=== PATIENT | male | born 1945 | race Caucasian/White ===

== ENCOUNTER 2018-05-01 18:46 | Observation (INO) ==
[2018-05-01] MEDS ORDERED: Naloxone 0.4 MG/ML INJ IVP PRN (21:43)
[2018-05-01 22:08] LABS: Basophils % 0.3 %; Eosinophils # 0.2 K/mcL (0.0-0.6); Eosinophils % 2.5 %; Hematocrit 43.8 % (37.5-50.1); Hemoglobin 13.7 g/dL (12.9-16.9); Immature Granulocytes % 0.2 % (0-4); Lymphocytes # 1.4 K/mcL (0.6-4.6); Lymphocytes % 15.5 %; Mean Corpuscular HGB Conc 31.3 g/dL (31.6-35.5); Mean Corpuscular Hemoglobin 25.8 pg (28.0-33.3); Mean Corpuscular Volume 82.5 fL (83.0-100.0); Mean Platelet Volume 11.4 fL (9.4-12.4); Monocytes # 0.8 K/mcL (0.0-1.3); Monocytes % 8.6 %; Neutrophils # 6.5 K/mcL (1.6-8.9); Platelet Count 175 K/mcL (140-400); Red Blood Count 5.31 M/mcL (4.19-5.50); Red Cell Distribution Width 15.5 % (11.5-14.5); Segmented Neutrophils % 72.9 %
--- NOTE | 2018-05-01 22:19 | Internal Med History&Physical ---
Addendum entered and electronically signed by Amy Smith MD 05/02/18 07:03: Patient was seen and examined on 05/01/2018 Original Note: <Kirby No - Last Filed: 05/02/18 01:36> Date of Encounter: 05/02/18 Time of Encounter: 22:17 Internal Medicine - H&P: HPI Chief complaint: dyspnea Admitted From: Intrahospital Transfer Plans for Post Hospital Care: Home History of present illness: Mr. Wallace is a 73 year old male with PMHx of a. fib, cardiomyopathy, CHF, CAD, DM, HTN transferred to [facility] from [place] for dysnpea and CXR findings of cardiomegaly vs pericardial effusion. According to patient earlier today he felt fine. He went to a department store and stepped out of his truck and immediately experienced difficulty in breathing. Patient states he tried to continue through the store and continued to have difficulty. He also soilded himself in the [place]. Patient states he rested on some bags of grain and decided it was time to call the squad. He arrived to the OSH, workup was unremarkable except for CXR findings of cardiomegaly vs pericardial effusion. Patient states he hasn't been recently ill and felt at his baseline prior to the event. He states at this time he feels better and wants to sleep. Denies fevers, cough, chest pain, back pain, N/V/D, lower extremity swelling or any other complaints at this time. He states that in the past he has experienced similar symptoms and he needed lasix. States this does not feel like his chest pain when he had an MT. Patient states he has been under more stress than usual today because he is upset with his son for some of the life decisions he is making. Past Med Surg Social Fam HX - Past Medical History Medical history: atrial fibrillation, cardiomyopathy, CHF, coronary artery disease, diabetes, hypertension, myocardial infarction Psychiatric history: depression - Past Surgical History Surgical History: angioplasty/stent Additional surgical history: CORONARY ABLATION - Social History Smoking Status: Never smoker Smokeless Tobacco Status: Yes (daily) Alcohol use: none Drug use: none - Family History Mother Hx Family Cardiac Disorders: Yes (unknown) Hx Family Endocrine Disorder: Yes (hypoglycemia) Internal Medicine - H&P: Meds Atorvastatin Calcium [Lipitor] 40 mg PO HS 01/19/17 [History] Furosemide [Lasix] 40 mg PO BID 01/19/17 [History] Glimepiride [Amaryl] 4 mg PO BID 01/19/17 [History] Metformin HCl [Glucophage] 1,000 mg PO BID 01/19/17 [History] Tamsulosin HCl [Flomax] 0.4 mg PO BID 01/19/17 [History] Insulin Glargine,Hum.rec.anlog [Lantus Solostar] 28 unit SQ HS 02/19/17 [History] amLODIPine [Norvasc] 5 mg PO DAILY 02/19/17 [History] Acetaminophen [Tylenol] 325 mg PO Q6HR PRN 02/18/18 [History] Carvedilol [Coreg] 3.125 mg PO BID 02/18/18 [History] Losartan Potassium [Cozaar] 100 mg PO DAILY 02/18/18 [History] Magnesium Oxide [Magnesium] 500 mg PO DAILY 02/18/18 [History] Pantoprazole Sodium [Protonix] 40 mg PO DAILY 02/18/18 [History] Potassium Chloride [Klor-Con 10] 20 meq PO BID 02/18/18 [History] Warfarin [Coumadin] 4 mg PO DAILY #0 02/19/18 [Rx] Allergy/AdvReac Type Severity Reaction Status Date / Time fluticasone Allergy See Verified 01/19/17 11:32 Comments All Systems PM: A 10-system review of systems was performed and is negative for pertinent findings except as documented above in the HPI. - Constitutional Constitutional: as per HPI - EENT Eyes: as per HPI Ears: as per HPI Nose, mouth and throat: as per HPI - Breasts Breasts: as per HPI - Cardiovascular Cardiovascular ROS IM: as per HPI - Respiratory Respiratory: as per HPI - Gastrointestinal Gastrointestinal: as per HPI - Genitourinary Genitourinary ROS male: as per HPI - Musculoskeletal Musculoskeletal ROS IM: as per HPI - Integumentary Integumentary IM: as per HPI - Neurological Neurological ROS: as per HPI - Psychiatric Psychiatric: as per HPI - Endocrine Endocrine IM: as per HPI - Hematologic/Lymphatic Hematologic/Lymphatic: as per HPI - Allergic/Immunologic Allergic/Immunologic: as per HPI - Constitutional Vitals: Temp Pulse Resp Pulse Ox 98.1 F 69 18 97 05/01/18 20:50 05/01/18 20:50 05/01/18 20:50 05/01/18 20:50 General appearance: Present: A&O X 3, pleasant, no acute distress Exam: Pleasant, in no acute distress. - Head Head exam: Present: atraumatic, normal inspection, normocephalic - Eye Eye exam: Present: normal appearance, PERRL - Neck Neck exam general surgery: Present: full ROM, normal inspection, supple. Absent: tenderness - Respiratory Respiratory exam: Present: CTAB. Absent: rales, respiratory distress, rhonchi, wheezes - Cardiovascular Cardiovascular exam: Present: RRR, +S1, +S2 - GI/Abdominal GI/Abdominal exam: Present: no peritoneal signs - Extremities Exam Extremities exam: Present: full ROM, normal capillary refill, normal inspection. Absent: pedal edema - Back Exam Back exam: Present: full ROM, normal inspection - Neurological Exam Neurological exam: Present: alert, oriented X3 - Psychiatric Psychiatric exam: Present: normal affect, normal mood Internal Med - H&P Results - Labs CBC & Chem 7: 05/01/18 21:55 05/01/18 21:55 Labs: Short CBC 05/01/18 Range/Units 21:55 WBC 8.9 (4.3-11.1) K/mcL Hgb 13.7 (12.9-16.9) g/dL Hct 43.8 (37.5-50.1) % Plt Count 175 (140-400) K/mcL Neutrophils # 6.5 (1.6-8.9) K/mcL - Assessment and plan (1) Dyspnea Current Visit: Yes Status: Acute Assessment and plan: Hx of a. fib with ablation, CHF, cardiomyopahty, CAD with MT and stents 02/19/18 - ablation for a. flutter 02/18/18 - single lead pacemaker placed for bradycardia by Dr. Almanzar 02/19/17 - JEAN LVEF 55%, mild-moderate mitral regurg 09/04 - cardiac ablation at [facility] for PVCs 04/07 - Cardiac stent Patient symptoms resolved at this time Unsure of cause Lungs sound clear to bilaterally CXR impression from OSH concerning for cardiomegaly vs cardiac effussion as well as pulmonary edema Received 40mg IV lasix at OSH Trop negative, EKG unchanged Plan: - Patient symptoms improved with Lasix from OSH - Trend troponins - Optimize electrolytes - CXR imaging uploaded from OSH - Consider repeat echo tomorrow Qualifiers: Dyspnea type: dyspnea on exertion Qualified Code(s): R06.09 - Other forms of dyspnea (2) CHF (congestive heart failure) Current Visit: Yes Status: Acute Assessment and plan: Echo performed on 02/19/17 showed EF 55% with dilated left atrium and mild- moderate mitral regurg Qualifiers: Heart failure type: unspecified Heart failure chronicity: acute on chronic Qualified Code(s): I50.9 - Heart failure, unspecified (3) HTN (hypertension) Current Visit: Yes Status: Acute Assessment and plan: Resume home medications in the AM Qualifiers: Hypertension type: essential hypertension Qualified Code(s): I10 - Essential (primary) hypertension (4) DVT prophylaxis Current Visit: Yes Status: Acute Assessment and plan: Continue home warfarin - Time Spent With Patient Total time spent is greater than 50% in coordination of care (as documented) at patient's floor/unit and/or counseling patient: <Amy Smith - Last Filed: 05/02/18 05:32> Date of Encounter: 05/01/18 Internal Medicine - H&P: HPI History of present illness: Mr. Wallace is a 73 year old male All Systems PM: A 10-system review of systems was performed and is negative for pertinent findings except as documented above in the HPI. - Constitutional Vitals: Temp Pulse Resp BP Pulse Ox 97.6 F 63 18 159/97 95 05/02/18 04:45 05/02/18 04:45 05/02/18 04:45 05/02/18 04:45 05/02/18 04:45 Internal Med - H&P Results - Labs CBC & Chem 7: 05/01/18 21:55 05/01/18 21:55 Labs: Short CBC 05/01/18 Range/Units 21:55 WBC 8.9 (4.3-11.1) K/mcL Hgb 13.7 (12.9-16.9) g/dL Hct 43.8 (37.5-50.1) % Plt Count 175 (140-400) K/mcL Neutrophils # 6.5 (1.6-8.9) K/mcL BMP 05/01/18 21:55 Sodium 136 Potassium 3.8 Chloride 103 Carbon Dioxide 27 BUN 17 Creatinine 0.88 Glucose 133 H Calcium 8.7 Cardiac Enzymes 05/02/18 Range/Units 00:18 Troponin I 0.04 H* (< 0.04) ng/mL Liver Function 05/01/18 Range/Units 21:55 Total Bilirubin 0.8 (0.3-1.0) mg/dL AST 18 (13-39) Units/L ALT 19 (7-52) Units/L Alkaline Phosphatase 87 (34-104) Units/L Albumin 3.9 (3.5-5.7) g/dL - Time Spent With Patient Total time spent is greater than 50% in coordination of care (as documented) at patient's floor/unit and/or counseling patient: - Attending Attestation I performed a history and physical examination of the patient and discussed his management with the resident. I reviewed the resident's note and agree with the plan of care.
[2018-05-01 22:27] LABS: Alanine Aminotransferase 19 Units/L (7-52); Albumin 3.9 g/dL (3.5-5.7); Albumin/Globulin Ratio 1.4 (1.1-2.2); Alkaline Phosphatase 87 Units/L (34-104); Aspartate Amino Transferase 18 Units/L (13-39); BUN/Creatinine Ratio 19 (6-26); Bilirubin,Total 0.8 mg/dL (0.3-1.0); Blood Urea Nitrogen 17 mg/dL (8-23); Calcium 8.7 mg/dL (8.6-10.3); Carbon Dioxide 27 mEq/L (23-29); Chloride 103 mEq/L (98-107); Globulin 2.8 g/dL (2.4-3.5); Glucose 133 mg/dL (70-105); Magnesium 2.1 mg/dL (1.6-2.6); Osmolality,Calculated 285 (280-300); Potassium 3.8 mEq/L (3.5-5.1); Sodium 136 mEq/L (136-145); Total Protein 6.7 g/dL (6.4-8.9); eGFR For Non-African Americans > 60 (> 60)
[2018-05-02] MEDS ORDERED: Acetaminophen 325 MG TABLET PO PRN (04:33)
[2018-05-02] MEDS ORDERED: D5% in Water 1,000 ML IVC PRN (04:34)
[2018-05-02] MEDS ORDERED: *HR* Dextrose 50 % in Water (Syg) 50 ML SYRINGE IVP PRN (04:34)
[2018-05-02] MEDS ORDERED: Dextrose Gel 15 GM/37.5 ML TUBE PO PRN ×2 (04:34)
[2018-05-02] MEDS ORDERED: Potassium Chloride Elixir 20 MEQ/15 ML UDC PO ONE (05:06)
[2018-05-02 05:54] LABS: INR 2.2; Prothrombin Time 24.3 Seconds (9.4-12.1)
[2018-05-02] MEDS: Insulin LISPRO 300 UNITS/3 ML VIAL SQ SCH ×3 (07:57→17:32)
[2018-05-02] MEDS: amLODIPine 5 MG TABLET PO SCH (08:05)
[2018-05-02] MEDS: Magnesium Oxide 400 MG TABLET PO SCH (08:08)
[2018-05-02] MEDS ORDERED: Furosemide 40 MG TABLET PO SCH (09:00)
--- NOTE | 2018-05-02 10:02 | Internal Med Progress Note ---
Hospitalist Progress Note - Encounter Date of Encounter: 05/02/18 Time of Encounter: 11:00 - Subjective Interval History: Patient presented from [place] [facility] due to acute onset of shortness of breath Patient was subsequently transferred to [facility] due to concerns for cardiomegaly versus pericardial effusion on chest x-ray. Echocardiogram pending for further recommendations - Exam Vitals: Temp Pulse Resp BP Pulse Ox 98.1 F 69 18 159/94 92 05/02/18 08:05 05/02/18 08:05 05/02/18 08:05 05/02/18 08:05 05/02/18 08:05 Exam: Gen.: Nonacute distress, alert and oriented 3 ENT: Mucosal membranes moist Respiratory: Lungs are clear to auscultation bilaterally without any wheezing rhonchi or rales Cardiovascular: Normal S1 and S2 regular rate rhythm no murmurs rubs or gallops Abdomen: Soft, nontender and nondistended with positive bowel sounds Extremities: No lower extremity edema Skin: Normal color - Assessment and Plan (1) Dyspnea Current Visit: Yes Status: Acute Assessment and Plan: Patient with sudden onset of shortness of breath with concerns for cardiomegaly versus pericardial effusion on chest x-ray done at [facility] Awaiting results from echocardiogram for further recommendations (2) Ischemic cardiomyopathy Current Visit: Yes Status: Acute Assessment and Plan: Per chart review, patient with LVEF of 55% on echocardiogram done on 02/19/17 in addition to cardiac stent on 03/2014 Apparently, patient received a dose of 40 mg IV Lasix at [place] [facility] Holding home dose of furosemide 40 mg twice daily per cardiology recommendations in addition to continuing carvedilol and statin Repeat echocardiogram showed small to moderate pericardial effusion Recommendations for repeat limited TTE in 24-48 hours. (3) S/P cardiac pacemaker procedure Current Visit: No Status: Acute Assessment and Plan: Patient with single lead pacemaker placement for bradycardia by Dr. Almanzar on 02/18/18 (4) Atrial fibrillation Current Visit: No Status: Chronic Assessment and Plan: Patient with cardiac ablation at [facility] for PVCs in 2012 Continue oral anticoagulation with Coumadin and rate control with carvedilol (5) HTN (hypertension) Current Visit: Yes Status: Acute Assessment and Plan: Controlled; continue home dose of amlodipine and Cozaar DVT Prophylaxis: Continue home dose of Coumadin - Time Spent with Patient Total time spent is greater than 50% in coordination of care (as documented) at patient's floor/unit and/or counseling patient: Internal Medicine: Result - Labs CBC & Chem 7: 05/01/18 21:55 05/01/18 21:55 Labs: Short CBC 05/01/18 Range/Units 21:55 WBC 8.9 (4.3-11.1) K/mcL Hgb 13.7 (12.9-16.9) g/dL Hct 43.8 (37.5-50.1) % Plt Count 175 (140-400) K/mcL Neutrophils # 6.5 (1.6-8.9) K/mcL BMP 05/01/18 21:55 Sodium 136 Potassium 3.8 Chloride 103 Carbon Dioxide 27 BUN 17 Creatinine 0.88 Glucose 133 H Calcium 8.7 Cardiac Enzymes 05/02/18 05/02/18 Range/Units 00:18 05:18 Troponin I 0.04 H* 0.04 H* (< 0.04) ng/mL Liver Function 05/01/18 Range/Units 21:55 Total Bilirubin 0.8 (0.3-1.0) mg/dL AST 18 (13-39) Units/L ALT 19 (7-52) Units/L Alkaline Phosphatase 87 (34-104) Units/L Albumin 3.9 (3.5-5.7) g/dL - ABG Interpretation ABG results: PT/INR, D-dimer PT 24.3 Seconds (9.4-12.1) H 05/02/18 05:18 Consult Discharge Plan - Plan Referrals: Loreto Lovett MD [Primary Care Provider] - (1) Dyspnea Qualifiers: Dyspnea type: dyspnea on exertion Qualified Code(s): R06.09 - Other forms of dyspnea (4) Atrial fibrillation Qualifiers: Atrial fibrillation type: persistent Qualified Code(s): I48.1 - Persistent atrial fibrillation (5) HTN (hypertension) Qualifiers: Hypertension type: essential hypertension Qualified Code(s): I10 - Essential (primary) hypertension
[2018-05-02] MEDS ORDERED: Perflutren Lipid Microsphere 1.3 ML in 0.9 % Sodium Chloride 8.7 ML IVP ONE (12:12)
[2018-05-02] MEDS ORDERED: Perflutren Lipid Microsphere 2 ML VIAL ONE (12:17)
--- NOTE | 2018-05-02 12:36 | Cardiology Consult Note ---
Date of Encounter: 05/02/18 Time of Encounter: 12:33 Assessment and Plan (1) Pericardial effusion Current Visit: Yes Status: Acute Small to moderate pericardial effusion. Patient resting comfortably, very talkative during our examination. Blood pressure is stable, actually hypertensive. No clinical or echocardiographic evidence of tamponade benign. Continue observation. No clinical indication for intervention at this time. Recommend hold Lasix for now to avoid intravascular volume depletion. Recommend repeat limited TTE in 24-48 hours. Further recommendations to follow. (2) Atrial fibrillation Current Visit: No Status: Chronic History of atrial fibrillation with slow ventricular response, status post pacemaker. Recommend continue current therapy for now, including Coumadin with a goal INR of 2-3. Qualifiers: Atrial fibrillation type: persistent Qualified Code(s): I48.1 - Persistent atrial fibrillation (3) S/P cardiac pacemaker procedure Current Visit: No Status: Acute Pacemaker placed in January 2018. Discussion w patient/family: The assessment and plan as outlined above was discussed with the patient and/or family members who expressed understanding and agreement. All questions were answered. Thank you for involving us in the care of your patient. Please call with any questions. History of Present Illness Consult date: 05/02/18 Requesting physician: Shashank Munoz Consult reason: Pericardial effusion Chief complaint: Shortness of breath History of present illness: Mr. Wallace is a 73 year old male who presented with complaints of sudden shortness of breath. Patient was ambulating in a store when he noticed the symptoms. Symptoms persisted. He contacted his family, who told him to go to the ER. He was transferred here for further care. Cardiomegaly described on chest x-ray. I was present during bedside echocardiogram a short while ago. Echocardiogram demonstrates a small to moderate pericardial effusion, but no evidence of tears and on. Patient recently had a pacemaker placed in January 2018. Indication was atrial fibrillation with slow ventricular response. Denies recent viral syndromes, illnesses. Past Med Surg Social Fam HX - Past Medical History Medical history: atrial fibrillation, cardiomyopathy, CHF, coronary artery disease, diabetes, hypertension, myocardial infarction Psychiatric history: depression - Past Surgical History Surgical History: angioplasty/stent Additional surgical history: CORONARY ABLATION - Social History Smoking Status: Never smoker Smokeless Tobacco Status: Yes (daily) Alcohol use: none Drug use: none - Family History Mother Hx Family Cardiac Disorders: Yes (unknown) Hx Family Endocrine Disorder: Yes (hypoglycemia) Medications and Allergies Atorvastatin Calcium [Lipitor] 40 mg PO HS 01/19/17 [History] Furosemide [Lasix] 40 mg PO BID 01/19/17 [History] Glimepiride [Amaryl] 4 mg PO BID 01/19/17 [History] Metformin HCl [Glucophage] 1,000 mg PO BID 01/19/17 [History] Tamsulosin HCl [Flomax] 0.4 mg PO BID 01/19/17 [History] amLODIPine [Norvasc] 5 mg PO DAILY 02/19/17 [History] Acetaminophen [Tylenol] 325 mg PO Q6HR PRN 02/18/18 [History] Carvedilol [Coreg] 3.125 mg PO BID 02/18/18 [History] Losartan Potassium [Cozaar] 100 mg PO DAILY 02/18/18 [History] Magnesium Oxide [Magnesium] 500 mg PO DAILY 02/18/18 [History] Potassium Chloride [Klor-Con 10] 20 meq PO BID 02/18/18 [History] Omeprazole [PriLOSEC] 40 mg PO DAILY 05/02/18 [History] Warfarin Sodium 4 mg PO AD 05/02/18 [History] Warfarin Sodium 5 mg PO AD 05/02/18 [History] Allergy/AdvReac Type Severity Reaction Status Date / Time fluticasone Allergy See Verified 01/19/17 11:32 Comments All Systems Review: The remainder of the systems were reviewed and are negative - Cardiovascular Cardiovascular: as per HPI, dyspnea at rest, dyspnea on exertion Physical Examination General: Conversant, No Apparent Distress HEENT: Atraumatic, Normocephaly, Mucus Membranes Moist Neck: No JVD, Normal carotid pulses Cardiac: Reg Rate and Rhythm, Normal S1 and S2, No Murmur Lungs: Normal Breath Sounds, No Wheeze, Rales, Rhonchi Neuro: Alert and responsive, No focal deficits noted Abdomen: Soft, Non-Tender, Other (Obese) Skin: No rashes noted on visualized skin Musculoskeletal: No Chest Wall Tenderness Extremities: No Clubbing, No Cyanosis, No Edema Results 05/01/18 21:55 05/01/18 21:55 Lab Results 05/01/18 05/01/18 05/01/18 21:55 21:55 21:55 WBC 8.9 Hgb 13.7 Hct 43.8 Plt Count 175 INR Sodium 136 Potassium 3.8 Chloride 103 Carbon Dioxide 27 BUN 17 Creatinine 0.88 Glucose 133 H Calcium 8.7 Magnesium 2.1 Total Bilirubin 0.8 AST 18 ALT 19 Alkaline Phosphatase 87 Troponin I B-Natriuretic Peptide 289 H 05/02/18 05/02/18 05/02/18 00:18 05:18 05:18 WBC Hgb Hct Plt Count INR 2.2 Sodium Potassium Chloride Carbon Dioxide BUN Creatinine Glucose Calcium Magnesium Total Bilirubin AST ALT Alkaline Phosphatase Troponin I 0.04 H* 0.04 H* B-Natriuretic Peptide - Imaging and Cardiology Echo: pending, image reviewed - EKG Interpretation EKG results cardiology: personally reviewed Consult Discharge Plan - Plan Referrals: Loreto Lovett MD [Primary Care Provider] -
[2018-05-02] MEDS ORDERED: *HR* Warfarin 4 MG TABLET PO SCH (18:00)
[2018-05-02] MEDS: *HR* Metformin 500 MG TABLET PO SCH (21:19)
[2018-05-02] MEDS: *HR* Glimepiride 4 MG TABLET PO SCH (21:19)
[2018-05-03] MEDS: Insulin LISPRO 300 UNITS/3 ML VIAL SQ SCH ×3 (08:00→17:35)
[2018-05-03] MEDS: Magnesium Oxide 400 MG TABLET PO SCH (08:09)
[2018-05-03] MEDS: amLODIPine 5 MG TABLET PO SCH (08:09)
[2018-05-03] MEDS: *HR* Metformin 500 MG TABLET PO SCH ×2 (08:10→20:24)
[2018-05-03] MEDS: *HR* Glimepiride 4 MG TABLET PO SCH ×2 (08:10→20:24)
--- NOTE | 2018-05-03 09:11 | Internal Med Progress Note ---
Hospitalist Progress Note - Encounter Date of Encounter: 05/03/18 Time of Encounter: 11:00 - Subjective Interval History: Patient presented from [facility] due to acute onset of shortness of breath Patient was subsequently transferred to [facility] due to concerns for cardiomegaly versus pericardial effusion on chest x-ray. - Exam Vitals: Temp Pulse Resp BP Pulse Ox 97.6 F 66 20 152/86 96 05/03/18 07:06 05/03/18 07:06 05/03/18 07:06 05/03/18 07:06 05/03/18 07:19 Exam: Gen.: Nonacute distress, alert and oriented 3 ENT: Mucosal membranes moist Respiratory: Lungs are clear to auscultation bilaterally without any wheezing rhonchi or rales Cardiovascular: Normal S1 and S2 regular rate rhythm no murmurs rubs or gallops Abdomen: Soft, nontender and nondistended with positive bowel sounds Extremities: No lower extremity edema Skin: Normal color - Assessment and Plan (1) Pericardial effusion Current Visit: Yes Status: Acute Assessment and Plan: Echocardiogram on 05/02/18 showed small to moderate pericardial effusion without any evidence of tamponade Cardiology following with recommendations for repeat limited echocardiogram today Appreciate any additional recommendations. (2) Dyspnea Current Visit: Yes Status: Acute Assessment and Plan: Patient with sudden onset of shortness of breath with concerns for cardiomegaly versus pericardial effusion on chest x-ray done at [place] [facility] Echocardiogram on 05/02/18 showed small to moderate pericardial effusion Management as above (3) Ischemic cardiomyopathy Current Visit: Yes Status: Acute Assessment and Plan: Per chart review, patient with LVEF of 55% on echocardiogram done on 02/19/17 in addition to cardiac stent on 03/2014 Repeat echocardiogram on 05/02/18 showed LVEF of 50-55% Apparently, patient received a dose of 40 mg IV Lasix at [place] [facility] 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 Almanzar on 02/18/18 (5) Atrial fibrillation Current Visit: No Status: Chronic Assessment and Plan: Patient with cardiac ablation at [facility] for PVCs in 2012 Continue oral anticoagulation with Coumadin (6) HTN (hypertension) Current Visit: Yes Status: Acute Assessment and Plan: Continue home dose of amlodipine and Cozaar DVT Prophylaxis: On home dose Coumadin as above - Time Spent with Patient Total time spent is greater than 50% in coordination of care (as documented) at patient's floor/unit and/or counseling patient: Internal Medicine: Result - Labs CBC & Chem 7: 05/03/18 09:19 05/03/18 09:19 - ABG Interpretation ABG results: PT/INR, D-dimer PT 24.3 Seconds (9.4-12.1) H 05/02/18 05:18 - Impressions Impressions Echocardiogram 05/02/18 05:17 Impressions: LVEF 50-55%. Normal LV chamber size and function. Mild concentric left ventricular hypertrophy. Indeterminate diastolic function. Atypical septal motion consistent with paced rhythm. Normal right ventricular structure and function. Severely dilated left atrium. Mild mitral regurgitation. No evidence of pulmonary hypertension. There is a small to moderate pericardial effusion present. There is no echocardiographic evidence of tamponade. A device lead was visualized in the right atrium and right ventricle. Left Ventricular Wall Motion: Rest Echo Findings All wall segments showed normal motion. Findings: Study Quality * Technically adequate exam. ECG Findings * Paced rhythm. Left Ventricle * LVEF 50-55%. * Normal LV chamber size and function. * Mild concentric left ventricular hypertrophy. * Indeterminate diastolic function. * Atypical septal motion consistent with paced rhythm. Right Ventricle * Normal right ventricular structure and function. Left Atrium * Severely dilated left atrium. Right Atrium * Moderately dilated right atrium. Aortic Valve * Trileaflet aortic valve. * Mildly calcified aortic valve leaflets. * No aortic regurgitation. * No aortic stenosis. Mitral Valve * Mild mitral annular calcification * Mild mitral regurgitation. * No mitral stenosis. Tricuspid Valve * Normal tricuspid valve structure and function. * Trace tricuspid regurgitation. * No evidence of pulmonary hypertension. Pulmonic Valve * Normal pulmonic valve structure and function. * Trace pulmonic regurgitation. Aorta * Normally sized aortic root. Pericardium * There is a small to moderate pericardial effusion present. * There is no echocardiographic evidence of tamponade. IVC * Normal IVC dimensions and inspiratory collapse. Device lead * A device lead was visualized in the right atrium and right ventricle. Pulmonary Artery * Normal visualized portions of the main pulmonary artery. Consult Discharge Plan - Plan Referrals: Loreto Lovett MD [Primary Care Provider] - 05/11/18 1:30 pm José Castañeda DO [Partnered Physician] - (office to call patient at home with follow up appointment) (2) Dyspnea Qualifiers: Dyspnea type: dyspnea on exertion Qualified Code(s): R06.09 - Other forms of dyspnea (5) Atrial fibrillation Qualifiers: Atrial fibrillation type: persistent Qualified Code(s): I48.1 - Persistent atrial fibrillation (6) HTN (hypertension) Qualifiers: Hypertension type: essential hypertension Qualified Code(s): I10 - Essential (primary) hypertension
[2018-05-03 09:30] LABS: Basophils % 0.3 %; Eosinophils # 0.3 K/mcL (0.0-0.6); Eosinophils % 3.9 %; Hematocrit 44.1 % (37.5-50.1); Hemoglobin 13.7 g/dL (12.9-16.9); Immature Granulocytes % 0.3 % (0-4); Lymphocytes # 0.9 K/mcL (0.6-4.6); Lymphocytes % 14.1 %; Mean Corpuscular HGB Conc 31.1 g/dL (31.6-35.5); Mean Corpuscular Hemoglobin 25.9 pg (28.0-33.3); Mean Corpuscular Volume 83.4 fL (83.0-100.0); Mean Platelet Volume 11.6 fL (9.4-12.4); Monocytes # 0.6 K/mcL (0.0-1.3); Monocytes % 8.8 %; Neutrophils # 4.8 K/mcL (1.6-8.9); Platelet Count 181 K/mcL (140-400); Red Blood Count 5.29 M/mcL (4.19-5.50); Red Cell Distribution Width 15.5 % (11.5-14.5); Segmented Neutrophils % 72.6 %
[2018-05-03 09:51] LABS: BUN/Creatinine Ratio 24 (6-26); Blood Urea Nitrogen 24 mg/dL (8-23); Calcium 8.7 mg/dL (8.6-10.3); Carbon Dioxide 28 mEq/L (23-29); Chloride 102 mEq/L (98-107); Glucose 277 mg/dL (70-105); Osmolality,Calculated 298 (280-300); Potassium 4.1 mEq/L (3.5-5.1); Sodium 137 mEq/L (136-145); eGFR For Non-African Americans > 60 (> 60)
--- NOTE | 2018-05-03 11:56 | Cardiology Progress Note ---
Date of Encounter: 05/03/18 Time of Encounter: 11:50 Assessment and Plan (1) Pericardial effusion Current Visit: Yes Status: Acute Pt presented with increased SOB. CXR at [facility] showed cardiomegaly vs pericardial effusion. Pt transferred to [facility] for evaluation. Small to moderate pericardial effusion on TTE. Patient resting comfortably. No distress noted. Blood pressure is stable, actually hypertensive. No clinical or echocardiographic evidence of tamponade benign. Continue observation. No clinical indication for intervention at this time. Lasix held for now to avoid intravascular volume depletion. No significant fluid overload on exam. Recommend repeat limited TTE today. Further recommendations to follow. (2) Atrial fibrillation Current Visit: No Status: Chronic History of atrial fibrillation with slow ventricular response, status post pacemaker. Likely chronic afib. Recommend continue current therapy for now, including Coumadin with a goal INR of 2-3. Qualifiers: Atrial fibrillation type: persistent Qualified Code(s): I48.1 - Persistent atrial fibrillation (3) S/P cardiac pacemaker procedure Current Visit: No Status: Acute Pacemaker placed in January 2018 for afib with slow ventricular response. (4) CHF (congestive heart failure) Current Visit: Yes Status: Chronic H/o chronic diastolic CHF. EF preserved on TTE. Lasix on hold. No significant fluid overload on exam. Low sodium diet and daily weights. BNP stable at 289. Qualifiers: Heart failure type: diastolic Heart failure chronicity: acute on chronic Qualified Code(s): I50.33 - Acute on chronic diastolic (congestive) heart failure (5) Elevated troponin Current Visit: Yes Status: Acute Flat troponin elevation 0.04x2. Non-diagnostic. TTE shows preserved LV function. Pt denies chest pain. (6) CAD (coronary artery disease) Current Visit: Yes Status: Chronic H/o [place] and VT arrest in 2013. Pt evaluated at [facility] and found to have non- obstructive single vessel CAD on C at that time. Continue asa, statin, and bb. Qualifiers: Coronary Disease-Associated Artery/Lesion type: [place] artery [place] vs. transplanted heart: [place] heart Associated angina: without angina Qualified Code(s): I25.10 - Atherosclerotic heart disease of [place] coronary artery without angina pectoris Discussion w patient/family: The assessment and plan as outlined above was discussed with the patient and/or family members who expressed understanding and agreement. All questions were answered. Thank you for involving us in the care of your patient. Please call with any questions. Subjective Principal diagnosis: SOB, pericardial effusion Interval history: Mr. Downing states that his SOB improved. Denies chest discomfort. Admits to mild ankle edema. Objective Vital Signs, Last 4 Hours Temp Pulse Resp BP Pulse Ox 05/03/18 11:23 97.6 F 67 19 152/93 97 General: Conversant, No Apparent Distress HEENT: Atraumatic, Normocephaly, Mucus Membranes Moist Neck: No JVD, Normal carotid pulses Cardiac: No Murmur, Other (Irregularly irregular) Lungs: Normal Breath Sounds, No Wheeze, Rales, Rhonchi, Other (Respirations noted to be mildly labored with exertion. ) Neuro: Alert and responsive, No focal deficits noted Abdomen: Soft, Non-Tender Skin: No rashes noted on visualized skin Musculoskeletal: No Chest Wall Tenderness Extremities: No Clubbing, No Cyanosis, Normal Pulses, Other (1+ edema bilateral ankles. ) Results 05/03/18 09:19 05/03/18 09:19 Lab Results 05/03/18 05/03/18 09:19 09:19 WBC 6.7 Hgb 13.7 Hct 44.1 Plt Count 181 Sodium 137 Potassium 4.1 Chloride 102 Carbon Dioxide 28 BUN 24 H Creatinine 1.00 Glucose 277 H Calcium 8.7 - Imaging and Cardiology Echo: report reviewed - EKG Interpretation EKG results cardiology: personally reviewed Consult Discharge Plan - Plan Referrals: Loreto Lovett MD [Primary Care Provider] - 05/11/18 1:30 pm José Castañeda DO [Partnered Physician] - (office to call patient at home with follow up appointment)
[2018-05-03] MEDS ORDERED: *HR* Warfarin 5 MG TABLET PO ONE (18:00)
[2018-05-03] MEDS ORDERED: Warfarin perPT PO PRN (18:00)
[2018-05-03] MEDS ORDERED: Perflutren Lipid Microsphere 1.3 ML in 0.9 % Sodium Chloride 8.7 ML IVP ONE (18:43)
[2018-05-04 06:17] LABS: INR 2.3; Prothrombin Time 25.7 Seconds (9.4-12.1)
[2018-05-04] MEDS: *HR* Metformin 500 MG TABLET PO SCH (07:46)
[2018-05-04] MEDS: Insulin LISPRO 300 UNITS/3 ML VIAL SQ SCH ×2 (07:46→13:12)
[2018-05-04] MEDS: *HR* Glimepiride 4 MG TABLET PO SCH (07:47)
[2018-05-04] MEDS: Magnesium Oxide 400 MG TABLET PO SCH (07:47)
[2018-05-04] MEDS: amLODIPine 5 MG TABLET PO SCH (07:49)
--- NOTE | 2018-05-04 09:42 | Discharge Summary ---
- NOTES TO OUTPATIENT PROVIDER Notes to Outpatient Provider: 73-year-old male was admitted for shortness of breath with new finding of pericardial effusion on chest x-ray and ECHO. Repeat echocardiogram in patient shows improvement in pericardial effusion. There was no evidence of tamponade. Patient was did not qualify for Home O2. CXR was clear. Lasix has been resumed. Followup with PCP and Bath Mix Operator Orders not resulted at time of discharge: Pending orders 05/05/18 04:00 Basic Metabolic Panel AM 0400 Complete Blood Count [HEME] AM 0400 INR/PT [Prothrombin Time INR] [COAG] AM 0400 05/06/18 04:00 INR/PT [Prothrombin Time INR] [COAG] AM 0400 05/07/18 04:00 INR/PT [Prothrombin Time INR] [COAG] AM 0400 Date of Encounter: 05/04/18 Time of Encounter: 09:42 - Discharge Diagnosis (1) Atrial fibrillation Priority: Secondary Status: Chronic Qualifiers: Atrial fibrillation type: persistent Qualified Code(s): I48.1 - Persistent atrial fibrillation (2) S/P cardiac pacemaker procedure Priority: Primary Status: Acute (3) Dyspnea Priority: Primary Status: Acute Qualifiers: Dyspnea type: dyspnea on exertion Qualified Code(s): R06.09 - Other forms of dyspnea (4) HTN (hypertension) Priority: Secondary Status: Chronic Qualifiers: Hypertension type: essential hypertension Qualified Code(s): I10 - Essential (primary) hypertension (5) Ischemic cardiomyopathy Priority: Secondary Status: Chronic (6) Pericardial effusion Priority: Primary Status: Acute Hospital course: Mr. Wallace is a 73 year old male with medical history of atrial fibrillation with slow ventricular response status post pacemaker placement, on anticoagulation with therapeutic INR, CHF with preserved ejection fraction, coronary artery disease status post [place] elevated VT arrest in 2013, HTN, HLD. The patient was admitted for shortness of breath from outside facility, with workup showing small to moderate pericardial effusion on echocardiogram. Chest x-ray also showed cardiomegaly with no infiltrates or pleural effusion. BNP 289, CBC , Chem and INR were at baseline and INR was therapeutic. He was admitted for observation, cardiology was consulted, and recommended holding Lasix and repeat TTE. Repeat TTE done 05/03 showed improvement in pericardial effusion. He was walked and did not qualify for home O2. Patient remains SOB with intense activity, although he reports feeling comfortable We will discharge home with resumption of home lasix and PFT as outpatient. He had no wheezing, crackles or rhonhci, he had no pedal edema Discharged home in clinically stable condition, follow up with his own digital imaging specialist and PCP scheduled, verbalized understanding of plan of care Discharge discussed with: patient, nurse, case management, data integrity consultant - Time Spent with Patient Total time spent providing and/or coordinating discharge services: Less than 30 minutes - Discharge Medications Home Medications: Atorvastatin Calcium [Lipitor] 40 mg PO HS 01/19/17 [History] Furosemide [Lasix] 40 mg PO BID 01/19/17 [History] Glimepiride [Amaryl] 4 mg PO BID 01/19/17 [History] Metformin HCl [Glucophage] 1,000 mg PO BID 01/19/17 [History] Tamsulosin HCl [Flomax] 0.4 mg PO BID 01/19/17 [History] amLODIPine [Norvasc] 5 mg PO DAILY 02/19/17 [History] Acetaminophen [Tylenol] 325 mg PO Q6HR PRN 02/18/18 [History] Carvedilol [Coreg] 3.125 mg PO BID 02/18/18 [History] Losartan Potassium [Cozaar] 100 mg PO DAILY 02/18/18 [History] Magnesium Oxide [Magnesium] 500 mg PO DAILY 02/18/18 [History] Potassium Chloride [Klor-Con 10] 20 meq PO BID 02/18/18 [History] Omeprazole [PriLOSEC] 40 mg PO DAILY 05/02/18 [History] Warfarin Sodium 4 mg PO AD 05/02/18 [History] Warfarin Sodium 5 mg PO AD 05/02/18 [History] Allergies/Adverse Reactions: Allergy/AdvReac Type Severity Reaction Status Date / Time fluticasone Allergy See Verified 01/19/17 11:32 Comments Date of admission: 05/01/18 20:37 Primary care physician: Loreto Lovett MD Consults: 05/02/18 11:55 Consult to Cardiology [CONS] Routine Comment: Consulting Provider: Cardiology Tyra Reason for Consult: Suspicion for Pericardial Effusion on Echocardiogram Time Notified: 11:50 Call Completed: Yes Discharging clinician: Holland De La O Anticipated date of discharge: 05/04/18 - Constitutional Vitals: Temp Pulse Resp BP Pulse Ox 97.5 F L 64 17 152/95 99 05/04/18 07:17 05/04/18 07:17 05/04/18 07:17 05/04/18 07:17 05/04/18 07:17 General appearance: Present: A&O X 3, pleasant, no acute distress Exam: Gen.: Nonacute distress, alert and oriented 3 ENT: Mucosal membranes moist Respiratory: Lungs are clear to auscultation bilaterally without any wheezing rhonchi or rales Cardiovascular: Normal S1 and S2 regular rate rhythm no murmurs rubs or gallops Abdomen: Soft, nontender and nondistended with positive bowel sounds Extremities: No lower extremity edema Skin: Normal color - Patient Status Disposition: Home, Self-Care Condition: Good Functional capacity at discharge: independent ambulation Overall status at discharge: patient is back to baseline - Discharge Instructions Follow Up With: Loreto Lovett MD [Primary Care Provider] - 05/11/18 1:30 pm José Castañeda DO [Partnered Physician] - (office to call patient at home with follow up appointment) - Diet and Activity Activity: resume usual activities as tolerated Diet: low fat, low cholesterol, low salt diet
[2018-05-04] MEDS ORDERED: Furosemide 40 MG TABLET PO SCH (10:15)
[2018-05-04 11:15] VITALS: BP 148/97
--- NOTE | 2018-05-04 13:34 | Cardiology Progress Note ---
Date of Encounter: 05/04/18 Time of Encounter: 13:30 Assessment and Plan (1) Pericardial effusion Current Visit: Yes Status: Acute Pt presented with increased SOB. CXR at [facility] showed cardiomegaly vs pericardial effusion. Pt transferred to [facility] for evaluation. Small to moderate pericardial effusion on TTE. Patient resting comfortably. No distress noted. Blood pressure remained stable. SOB improved. Continues to have some dyspnea with activity. Repeat TTE shows slight reduction in pericardial effusion. No clinical or echocardiographic evidence of tamponade benign. 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 No clinical indication for intervention at this time. Lasix held for now to avoid intravascular volume depletion during hospital stay. Discussed with Tevin El to restart. Cardiology will sign off. Out-pt f/u will be coordinated. (2) Atrial fibrillation Current Visit: No Status: Chronic History of atrial fibrillation with slow ventricular response, status post pacemaker. Likely chronic afib. Remained in atrial fibrillation during stay that was rate controlled. Recommend continue current therapy for now, including Coumadin with a goal INR of 2-3. Qualifiers: Atrial fibrillation type: persistent Qualified Code(s): I48.1 - Persistent atrial fibrillation (3) S/P cardiac pacemaker procedure Current Visit: No Status: Acute Pacemaker placed in January 2018 for afib with slow ventricular response. (4) CHF (congestive heart failure) Current Visit: Yes Status: Chronic H/o chronic diastolic CHF. EF preserved on TTE. Lasix on hold after IV lasix given in ED, okay to restart oral lasix. No significant fluid overload on exam. Low sodium diet and daily weights. BNP stable at 289. Qualifiers: Heart failure type: diastolic Heart failure chronicity: acute on chronic Qualified Code(s): I50.33 - Acute on chronic diastolic (congestive) heart failure (5) Elevated troponin Current Visit: Yes Status: Acute [place] troponin elevation 0.04x2. Non-diagnostic. TTE shows preserved LV function. Pt denies chest pain. (6) CAD (coronary artery disease) Current Visit: Yes Status: Chronic H/o [place] and VT arrest in 2013. Pt evaluated at [facility] and found to have non- obstructive single vessel CAD on [facility] at that time. Continue asa, statin, and bb. Qualifiers: Coronary Disease-Associated Artery/Lesion type: [place] artery [place] vs. transplanted heart: [place] heart Associated angina: without angina Qualified Code(s): I25.10 - Atherosclerotic heart disease of [place] coronary artery without angina pectoris Discussion w patient/family: The assessment and plan as outlined above was discussed with the patient and/or family members who expressed understanding and agreement. All questions were answered. Thank you for involving us in the care of your patient. Please call with any questions. Subjective Principal diagnosis: SOB, pericardial effusion Interval history: Mr. Downing states that his SOB improved. Denies chest discomfort. He is being trialed of oxygen for d/c planning. Objective Vital Signs, Last 4 Hours Temp Pulse Resp BP Pulse Ox 05/04/18 13:01 96 05/04/18 11:13 97.9 F 69 20 148/97 General: Conversant, No Apparent Distress HEENT: Atraumatic, Normocephaly, Mucus Membranes Moist Neck: No JVD, Normal carotid pulses Cardiac: Other (Irregular, atrial fibrillation occasional pacing. ) Lungs: Normal Breath Sounds, No Wheeze, Rales, Rhonchi Neuro: Alert and responsive, No focal deficits noted Abdomen: Soft, Non-Tender Skin: No rashes noted on visualized skin Musculoskeletal: No Chest Wall Tenderness Extremities: No Clubbing, No Cyanosis, No Edema, Normal Pulses Results 05/03/18 09:19 05/03/18 09:19 Lab Results 05/03/18 05/04/18 15:21 05:42 INR 2.0 2.3 - Imaging and Cardiology Echo: report reviewed - EKG Interpretation EKG results cardiology: personally reviewed Consult Discharge Plan - Plan Referrals: Loreto Lovett MD [Primary Care Provider] - 05/11/18 1:30 pm José Castañeda DO [Partnered Physician] - (office to call patient at home with follow up appointment)
--- NOTE | 2018-05-04 16:45 | Electrocardiograph Report ---
[address] [address] Test Date: 2018-05-02 Pat Name: Favian Wallace Department: 110 Room: 01 Gender: M Gi Physician: RAYSHAWN : 1945 Requested By: Amy Smith Order Number: [id number] Reading MD: New Cheung Measurements Intervals [place] Rate: 60 P: MI: 0 QRS: -76 QRSD: 176 T: 110 QT: 492 QTc: 494 Interpretive Statements ATRIAL FIBRILLATOIIN ELECTRONIC VENTRICULAR PACEMAKER Electronically Signed On 05-04-2018 16:44:10 EST by New Cheung
[2018-05-04] MEDS ORDERED: *HR* Warfarin 4 MG TABLET PO ONE (18:00)
== END 2018-05-04 16:32 | disposition home or self-care (01) ==
LOC: 2NNU → SUATTDRO 20:37
PROVIDERS: ADMIT Internal Medicine; ATTEND Internal Medicine